=== PATIENT | male | born 1980 ===

== ENCOUNTER 2016-12-01 | Outpatient (CLI) | payer OTHER | END 2016-12-01 14:09 | disposition home or self-care (01) | DX: Z53.9 Procedure and treatment not carried out, unspecified reason (principal) ==

== ENCOUNTER 2018-02-22 13:19 | Outpatient (CLI) | payer OTHER | END 2018-02-22 13:20 | disposition home or self-care (01) | LOC: SC 13:19 | PROVIDERS: ATTEND Internal Medicine Pulmonary Disease | DX: G47.33 Obstructive sleep apnea (adult) (pediatric) (principal) | CPT/HCPCS: 99212; 99213 ==

== ENCOUNTER 2019-03-30 13:48 | Outpatient (CLI) | payer OTHER | END 2019-03-30 13:49 | disposition home or self-care (01) | LOC: SC 13:48 | PROVIDERS: ATTEND Nurse Practitioner Family | DX: G47.33 Obstructive sleep apnea (adult) (pediatric) (principal) | CPT/HCPCS: 99212; 99214 ==